=== PATIENT | female | born 1945 | race Caucasian/White ===

== ENCOUNTER 2016-12-29 19:29 | Emergency (ER) | payer BC | END 2016-12-29 21:22 | disposition home or self-care (01) | DX: S09.90XA Unspecified injury of head, initial encounter (principal); S00.83XA Contusion of other part of head, initial encounter; W22.8XXA Striking against or struck by other objects, initial encounter; Y92.009 Unspecified place in unspecified non-institutional (private) residence as the place of occurrence of the external cause; I10 Essential (primary) hypertension; M06.9 Rheumatoid arthritis, unspecified; M79.7 Fibromyalgia ==